=== PATIENT | female | born 1965 | race Caucasian/White ===

== ENCOUNTER 2018-12-06 22:50 | Emergency (ER) | payer OTHER, MEDICAID, SELFPAY ==
[2018-12-06 23:02] VITALS: BP 123/96; PULSE 96; RESP 20; TEMP 37; O2SAT 95; BMI 29.9
--- NOTE | 2018-12-06 23:17 | ED_ITS ---
HPI - Abdominal Pain General Chief Complaint: Abdominal Pain Stated Complaint: diarrhea and vomiting Time Seen by Provider: 12/06/18 22:55 Source: patient Mode of arrival: ambulatory Limitations: no limitations History of Present Illness HPI narrative: Patient is a 53-year-old female here for evaluation of nausea vo miting and diarrhea for the past several days. She states that the nausea and vomiting started 1st the diarrhea started after that. No blood in the stool or the vomit. No fevers. Does have generalized abdominal tenderness. No urinary symptoms. No prior abdominal surgeries. [place] told her to come to the emergency department for evaluation. States she has not vomited since then. Related Data Previous Rx's Medication Instructions Recorded amoxicillin-pot clavulanate 1 tab PO Q8HR 7 Days #21 tab 12/07/18 [Augmentin] ondansetron 4 mg PO Q6H PRN #14 tab 12/07/18 Review of Systems Constitutional Denies fever(s) and Denies headache(s) ENT Ears, Nose, Mouth, and Throat: Denies headache(s) Cardiovascular Denies chest pain and Denies dyspnea Respiratory Denies dyspnea Gastrointestinal Gastrointestinal: Reports abdominal pain, Reports diarrhea, Reports nausea and Reports vomiting Genitourinary Denies dysuria Musculoskeletal Denies myalgias and Denies arthralgias Integumentary/Breasts Denies lesions and Denies rash Neurologic Denies behavioral changes and Denies headache(s) Psychiatric Denies behavioral changes Hematologic/Lymphatic Denies easy bleeding and Denies easy bruising [facility] Surgical History No pertinent past surgical history (Acute) Social History Smoking Status: Current every day smoker Social History Smoking Status: Current every day smoker Exam Initial Vital Signs Initial Vital Signs: Vital Signs Temperature 98.6 F 12/06/18 23:02 Pulse Rate 96 H 12/06/18 23:02 Respiratory Rate 20 12/06/18 23:02 Blood Pressure 123/96 H 12/06/18 23:02 Pulse Oximetry 95 12/06/18 23:02 Const General: cooperative, well developed, well groomed and No acute distress Orientation: alert, awake and oriented x3 HENMT Head: normal to inspection and normocephalic Resp Effort & Inspection: normal respiratory effort Auscultation: clear to auscultation bilaterally Cardio Rate: regular rate Rhythm: regular rhythm Pulses: radial pulses present GI Inspection: non-distended Palpation: soft, No firm, No guarding and tender (Diffuse tenderness) Back/Spine/Pelvis Back: No CVA tenderness Skin Lesions: no lesions Rashes: no rashes Neuro General: alert, awake and oriented x3 Cognition: normal cognition Speech: speech normal Extrem General: normal to inspection and capillary refill normal Psych Appearance: grossly normal and well kempt Course Orders Ordered: ED Orders 12/06/18 23:15 Complete Blood Count AUTO DIFF Stat Comprehensive Metabolic Panel Stat Lipase Stat Partial Thromboplastin Time Stat Prothrombin Time INR Stat 12/06/18 23:23 CT abdomen pelvis w con Stat Discontinued Medications Sodium Chloride (Normal Saline 0.9%) 1,000 mls @ 1,000 mls/hr IV BOLUS ONE Stop: 12/07/18 00:22 Last Infusion: 12/07/18 01:07 Dose: 0 mls/hr Admin: 12/06/18 23:33 Dose: 1,000 mls/hr Morphine Sulfate (Morphine) 4 mg IV NOW ONE Stop: 12/06/18 23:24 Last Admin: 12/06/18 23:32 Dose: 4 mg Ondansetron HCl (Zofran Odt Prepack) 1 bottle MISC SEEINSTR ONE Stop: 12/07/18 01:03 Last Admin: 12/07/18 01:09 Dose: 1 bottle Vital Signs - 8 hr 12/06/18 23:02 12/06/18 23:59 12/07/18 01:13 Temperature 98.6 F Pulse Rate 96 H 96 H 88 Respiratory Rate 20 16 Blood Pressure 123/96 H Blood Pressure [Right Arm] 104/64 108/80 Pulse Oximetry 95 96 97 MDM - Abdominal Pain Lab Data Attestation: I reviewed the patient's lab results. Result diagrams: 12/06/18 23:15 12/06/18 23:15 Lab Results 12/06/18 12/06/18 12/06/18 Range/Units 23:15 23:15 23:15 WBC 14.0 H (4.5-11.0) X10^3/uL RBC 4.47 (4.0-5.2) X10^6/uL Hgb 13.8 (12.0-16.0) g/dL Hct 41.0 (36-46) % MCV 91.6 (80-100) fL MCH 30.9 (26-34) PG MCHC 33.8 (30-36) % RDW 13.2 (11.6-14.8) % Plt Count 353 (150-400) X10^3/uL Neut % (Auto) 63.9 (50-75) % Lymph % (Auto) 25.1 (25-40) % [place] % (Auto) 7.0 (3-14) % Eos % (Auto) 3.7 (2-4) % Baso % (Auto) 0.3 (0-2) % Neut # (Auto) 9000 H (7003-5302) /uL Lymph # (Auto) 3500 (8544-7850) /uL [place] # (Auto) 1000 H (0-900) /uL Eos # (Auto) 500 H (0-450) /uL Baso # (Auto) 0 (0-100) /uL PT 14.1 H (10.1-12.7) SECONDS INR 1.2 (0.9-1.3) APTT 36 (26.4-36.2) SECONDS Sodium 141 (137-145) mmol/L Potassium 3.5 (3.4-5.1) mmol/L Chloride 97 L (98-107) mmol/L Carbon Dioxide 32 (22-32) mmol/L BUN 12 (7-17) mg/dL Creatinine 1.10 H (0.52-1.04) mg/dL Estimated GFR 52.0 L (>60) mL/min BUN/Creatinine Ratio 10.9 (6-22) Glucose 115 H (70-100) mg/dL Calcium 8.9 (8.4-10.2) mg/dL Total Bilirubin 1.4 H (0.2-1.3) mg/dL AST 26 (14-36) IU/L ALT 18 (9-52) IU/L Alkaline Phosphatase 85 (38-126) U/L Total Protein 8.0 (6.3-8.2) g/dL Albumin 4.2 (3.5-5.0) g/dL Globulin 3.8 (1.7-4.1) g/dL Albumin/Globulin Ratio 1.1 (1.0-2.8) Lipase 49 (23-300) U/L Imaging Data CT scan - abdomen: Radiologist's impression: Findings suggesting of early/developing sigmoid diverticulitis as described. No evidence for perforation or obstruction. Enteritis as described MDM Narrative Medical decision making narrative: Nontoxic appearing. To tolerate oral intake. Does have a leukocytosis however this is not surprising given her CT scan findings. Will send home with antibiotics secondary to the early diverticulitis. Will send home with the Zofran. We discussed importance of increasing her fluid intake. We discussed return precautions and follow-up instructions. She expressed understanding and agreement with plan. Discharge Plan Departure Patient Disposition: Home Clinical Impression: Diverticulitis Abdominal pain Qualifiers: Abdominal location: generalized Qualified Code(s): R10.84 - Generalized abdominal pain Nausea and vomiting Qualifiers: Vomiting type: unspecified Vomiting Intractability: non-intractable Qualified Code(s): R11.2 - Nausea with vomiting, unspecified Diarrhea Qualifiers: Diarrhea type: unspecified type Qualified Code(s): R19.7 - Diarrhea, unspecified Discharge Date/Time: 12/07/18 01:15 Interventions: ED Discharge Assessment Last Done: 12/07/18 01:14 Instructions: Diarrhea, DI for Diverticulitis, Nausea and Vomiting-Adult Activity Restrictions/Additional Instructions: Be sure to increase your fluid intake. Take the antibiotics as directed. Eat a bland diet for the next couple days. Contact your primary provider for follow- up. Return to the emergency department for any new or worsening symptoms Prescriptions: New ondansetron 4 mg tablet,disintegrating 4 mg PO Q6H PRN (Reason: nausea and vomiting) Qty: 14 RF: 0 amoxicillin-pot clavulanate [Augmentin] 875-125 mg tablet 1 tab PO Q8HR 7 Days Qty: 21 RF: 0 Referrals: Alonzo Poe MD [Primary Care Provider] -
[2018-12-06 23:23] LABS: Add Manual Diff / Slide Review NO; Basophils Absolute Auto 0 /uL (0-100); Basophils Percent Auto 0.3 % (0-2); Eosinophils Absolute Auto 500 /uL (0-450); Eosinophils Percent Auto 3.7 % (2-4); Hemoglobin 13.8 g/dL (12.0-16.0); Lymphocytes Absolute Auto 3500 /uL (1100-4500); Lymphocytes Percent Auto 25.1 % (25-40); Mean Corpuscular HGB Conc 33.8 % (30-36); Mean Corpuscular Hemoglobin 30.9 PG (26-34); Mean Corpuscular Volume 91.6 fL (80-100); Monocytes Absolute Auto 1000 /uL (0-900); Neutrophils Absolute Auto 9000 /uL (1500-7000); Neutrophils Percent Auto 63.9 % (50-75); Platelet Count 353 X10^3/uL (150-400); Red Blood Cell Count 4.47 X10^6/uL (4.0-5.2); Red Cell Distribution Width 13.2 % (11.6-14.8)
--- NOTE | 2018-12-06 23:23 | DI.CT.S_ITS ---
PROCEDURE: CT ABDOMEN PELVIS W CON INDICATIONS: Bilateral lower abdominal pain TECHNIQUE: After the administration of intravenous contrast, 5 mm thick sections acquired from the diaphragm to the symphysis. 5 mm coronal and sagittal reformats were acquired. For radiation dose reduction, the following was used: automated exposure control, adjustment of mA and/or kV according to patient size. COMPARISON: None. FINDINGS: Image quality: Excellent. ABDOMEN: Lung bases: Lung bases are clear. Heart size is normal. Solid organs: Liver is normal in size and enhancement. Hepatic steatosis is seen. Gallbladder is within normal limits. Biliary system is non dilated. Pancreas enhances normally. Spleen is normal in size and enhancement. No adrenal nodules. Kidneys demonstrate normal size and enhancement, without hydronephrosis. Peritoneum and bowel: There is no evidence of bowel obstruction. No significant gastric wall thickening. Mild mid to distal small bowel wall thickening with mesenteric fat stranding is seen concerning for mild enteritis. Extensive sigmoid diverticulosis is seen. There is wall thickening and pericolonic fat stranding involving proximal to mid sigmoid colon concerning for acute diverticulitis. No abscess collection. Trace amount of free fluid is noted in lower pelvis. No peritoneal free air. Nodes and vessels: No retroperitoneal or mesenteric adenopathy by size criteria. Aorta and inferior vena cava are normal in size. Miscellaneous: No ventral hernias. PELVIS: Genitourinary: Bladder wall thickness is normal. Miscellaneous: No inguinal hernias or adenopathy. Bones: No suspicious bony lesions. No vertebral body compression fractures. IMPRESSION: 1. Finding is concerning for early acute diverticulitis involving proximal to mid sigmoid colon. No abscess collection. No peritoneal free air. Trace amount of free fluid in lower pelvis. 2. Mild mid to distal small bowel wall thickening and edema concerning for mild enteritis. 3. No bowel obstruction. Hepatic steatosis. No discrepancies. Dictated by: Mikhail Chandra M.D. on 12/07/2018 at 8:18 Approved by: Mikhail Chandra M.D. on 12/07/2018 at 8:21
[2018-12-06 23:30] LABS: INR 1.2 (0.9-1.3); Prothrombin Time 14.1 SECONDS (10.1-12.7)
[2018-12-06 23:32] LABS: PTT Partial Thromboplastin Tim 36 SECONDS (26.4-36.2)
[2018-12-06] MEDS: MORPHINE 4 MG/ML INJ IV (23:32)
[2018-12-06] MEDS: SODIUM CHLORIDE 0.9% 1,000 ML 1000 ML IV (23:33)
[2018-12-06 23:34] LABS: Alanine Aminotransferase 18 IU/L (9-52); Albumin 4.2 g/dL (3.5-5.0); Albumin Globulin Ratio 1.1 (1.0-2.8); Alkaline Phosphatase 85 U/L (38-126); Aspartate Aminotransferase 26 IU/L (14-36); BUN Creatinine Ratio 10.9 (6-22); Bilirubin Total 1.4 mg/dL (0.2-1.3); Blood Urea Nitrogen 12 mg/dL (7-17); Calcium 8.9 mg/dL (8.4-10.2); Carbon Dioxide 32 mmol/L (22-32); Chloride 97 mmol/L (98-107); Globulin 3.8 g/dL (1.7-4.1); Glucose 115 mg/dL (70-100); HEMOLYSIS < 15 (0-50); Lipase 49 U/L (23-300); Potassium 3.5 mmol/L (3.4-5.1); Sodium 141 mmol/L (137-145)
[2018-12-06 23:59] VITALS: BP 104/64; PULSE 96; RESP 16; O2SAT 96
--- NOTE | 2018-12-07 01:05 | PC.NURSE ---
She has uppr and lower dentures with her and a cell,a purse,landrum,and clothes and 2 rings.
[2018-12-07] MEDS: ONDANSETRON 4 MG ODT PREPACK 1 BOTTLE MISC (01:09)
[2018-12-07 01:13] VITALS: BP 108/80; PULSE 88; O2SAT 97
== END 2018-12-07 01:15 | disposition home or self-care (01) ==
PROVIDERS: Emergency Provider Emergency Medicine
DX: K57.92 Diverticulitis of intestine, part unspecified, without perforation or abscess without bleeding (principal); R10.84 Generalized abdominal pain; R11.2 Nausea with vomiting, unspecified; R19.7 Diarrhea, unspecified
CPT/HCPCS: 36591; 74177; 80053; 83690; 85025; 85610; 85730; 96361; 96374; 99283; 99284; J2270; Q9967

== ENCOUNTER 2019-01-05 19:17 | Emergency (ER) | payer OTHER, MEDICAID, SELFPAY ==
[2019-01-05 19:20] VITALS: BP 177/103; PULSE 106; RESP 20; TEMP 36.9; O2SAT 100
[2019-01-05 20:03] LABS: Add Manual Diff / Slide Review NO; Basophils Absolute Auto 100 /uL (0-100); Basophils Percent Auto 0.7 % (0-2); Eosinophils Absolute Auto 800 /uL (0-450); Eosinophils Percent Auto 10.1 % (2-4); Hematocrit 35.7 % (36-46); Hemoglobin 12.4 g/dL (12.0-16.0); Lymphocytes Absolute Auto 2600 /uL (1100-4500); Lymphocytes Percent Auto 31.5 % (25-40); Mean Corpuscular HGB Conc 34.7 % (30-36); Mean Corpuscular Volume 92.2 fL (80-100); Monocytes Absolute Auto 600 /uL (0-900); Monocytes Percent Auto 7.4 % (3-14); Neutrophils Absolute Auto 4200 /uL (1500-7000); Neutrophils Percent Auto 50.3 % (50-75); Platelet Count 295 X10^3/uL (150-400); Red Blood Cell Count 3.87 X10^6/uL (4.0-5.2); Red Cell Distribution Width 13.2 % (11.6-14.8); White Blood Cell Count 8.3 X10^3/uL (4.5-11.0)
[2019-01-05 20:19] LABS: BUN Creatinine Ratio 22.5 (6-22); Blood Urea Nitrogen 18 mg/dL (7-17); Calcium 8.9 mg/dL (8.4-10.2); Carbon Dioxide 29 mmol/L (22-32); Chloride 103 mmol/L (98-107); Estimated Glomerular Filt Rate > 60.0 mL/min (>60); Glucose 112 mg/dL (70-100); HEMOLYSIS 49 (0-50); Potassium 3.8 mmol/L (3.4-5.1); Sodium 139 mmol/L (137-145)
[2019-01-05 20:26] VITALS: BP 153/87; PULSE 91; RESP 18; O2SAT 98
[2019-01-05 20:50] LABS: Procalcitonin < 0.05 ng/mL (<0.5)
[2019-01-05 20:53] LABS: Lactate (Lactic Acid) 0.9 mmol/L (0.7-2.1)
[2019-01-05] MEDS: TRIMETH/SULFA 160/800 PREPACK 1 BOTTLE MISC (21:46)
--- NOTE | 2019-01-05 21:50 | ED.SKABFB ---
HPI - Skin/Abscess/Foreign Bdy <LUIS Ramos - Last Filed: 01/05/19 22:33> General Chief complaint: Skin/Abscess/Foreign Body Stated complaint: states she has a cyst going into blood stream Time Seen by Provider: 01/05/19 19:23 Source: patient Mode of arrival: ambulatory Limitations: no limitations History of Present Illness HPI narrative: This is a pleasant 53-year-old female, smoker, presents to ED with chief complain of right side bartholian gland abscess. She was diagnosed with this at [facility] and was referred to ED for septic workup since the provider was concerned after seeing red streak on blood vessel near by, according to the patient. She reports initial onset of symptoms started about 9 days ago. She reports mild chills, decreased appetite, not feeling well. She denies fever. She reports slightly decreasing in size of the lesion and small amount of prulent drainage especially that increases after the hot shower. She has been using hot packs or soaking as instructed for last several days. She was received 1 g of Rocephin IM injection and had completed doses of Augmentin, topical mupirocin on affected site per her primary care provider at [facility]. According to the patient's medical record, she has a pending follow-up appointment with crocodile farmer and for possible I and D next week sometime. She denies being sexually active for several years and is not concerned for STIs. Related Data Home Medications Medication Instructions Recorded Confirmed amoxicillin-pot clavulanate 1 tab PO Q12H 01/05/19 01/05/19 [Augmentin] aspirin 81 mg PO DAILY 01/05/19 01/05/19 atorvastatin 40 mg PO DAILY 01/05/19 01/05/19 carvedilol 12.5 mg PO BID 01/05/19 01/05/19 ipratropium-albuterol [Combivent 1 puff INHALATION QID 01/05/19 01/05/19 Respimat] lisinopril 10 mg PO DAILY 01/05/19 01/05/19 lorazepam 1 mg PO QID PRN 01/05/19 01/05/19 mupirocin 1 applic TOPICAL QID 01/05/19 01/05/19 potassium chloride 10 meq PO DAILY 01/05/19 01/05/19 tiotropium bromide [Spiriva with 1 cap INHALATION DAILY 01/05/19 01/05/19 HandiHaler] Previous Rx's Medication Instructions Recorded sulfamethoxazole-trimethoprim 1 tab PO BID 7 Days #14 tab 01/05/19 Allergies Allergy/AdvReac Type Severity Reaction Status Date / Time No Known Drug Allergies Allergy Verified 01/05/19 19:35 Review of Systems <LUIS Ramos - Last Filed: 01/05/19 22:33> Review of Systems General: See HPI HEENT: Denies sinus pain, ear pain, sore throat, difficulty swallowing, dizziness. Respiratory: Denies dyspnea, cough, wheezing, hemoptysis, sputum. Cardiovascular: Denies chest pain, palpitations, orthopnea, edema. Gastrointestinal: Denies nausea, vomiting, abdominal pain, diarrhea, constipation, melena. : Denies dysuria, frequency, incontinence, hematuria, urinary retention. Musculoskeletal: Denies weakness, joint pain or bony pain. Skin: See HPI Neurologic: Denies weakness, headache, numbness, change in speech, confusion, seizures, incoordination. Psychiatric: No concerning psychosocial issues. 12-point review of systems is negative except for those stated above. PFSH <LUIS Ramos - Last Filed: 01/05/19 22:33> Medical History Abscess of Bartholin's gland (Acute) Acute stress reaction (Acute) Anxiety (Acute) Asthma (Acute) CHF (congestive heart failure) (Acute) Chest pain (Acute) Chronic diastolic (congestive) heart failure (Acute) Corns and callosities (Acute) Diverticular disease of large intestine (Acute) Endometrial hyperplasia, unspecified (Acute) Headache (Acute) Pleurisy (Acute) Primary hypertension (Acute) Sciatica (Acute) Tobacco abuse (Acute) Surgical History No pertinent past surgical history (Acute) Social History Smoking Status: Current every day smoker Social History (Updated 01/05/19 @ 22:17 by LUIS Ramos) Smoking Status: Current every day smoker substance use type: marijuana Exam <LUIS Ramos - Last Filed: 01/05/19 22:33> Narrative Exam Narrative: General appearance: well developed, well nourished, in no acute distress. Head: normocephalic, atraumatic, no scalp lesions, non-tender. Eye: pupil equal, round. EOMI. Nose: nares patent. Oral: mucosa moist. Neck/Thyroid: neck supple, full range of motion, no visible masses. Skin: R external majora labia erythematous, indurated lesion with with 3 small, open lesions. No drainage noted but tender to palpate. Mild repeat much to right upper inner thigh without edema, induration, warmth. Heart: no clubbing, no cyanosis, no edema. Lungs: Breathing even and unlabored. No stridor. No accessory muscles used. Chest: normal shape and expansion. Abdomen: non-obese, non-distended. Neurologic: alert and oriented. Cognitive exam, ICU NURSE and PNS grossly intact on informal exam. Psych: good eye contact, normal affect. Initial Vital Signs Initial Vital Signs: Vital Signs Temperature 98.4 F 01/05/19 19:20 Pulse Rate 106 H 01/05/19 19:20 Respiratory Rate 20 01/05/19 19:20 Blood Pressure 177/103 H 01/05/19 19:20 Pulse Oximetry 100 01/05/19 19:20 <Alonzo Vizcarra MD - Last Filed: 01/06/19 02:13> Initial Vital Signs Initial Vital Signs: Vital Signs Temperature 98.4 F 01/05/19 19:20 Pulse Rate 106 H 01/05/19 19:20 Respiratory Rate 20 01/05/19 19:20 Blood Pressure 177/103 H 01/05/19 19:20 Pulse Oximetry 100 01/05/19 19:20 Course <LUIS Ramos - Last Filed: 01/05/19 22:33> Orders Ordered: ED Orders 01/05/19 19:54 Basic Metabolic Panel Stat Complete Blood Count AUTO DIFF Stat Procalcitonin Stat 01/05/19 20:05 Lactate (Lactic Acid) Stat 01/05/19 20:25 Blood Culture Stat 01/05/19 20:28 Wound Culture and Gram Stain Stat Discontinued Medications Trimethoprim/Sulfamethoxazole (Bactrim Ds Prepack) 1 bottle MISC SEEINSTR ONE Stop: 01/05/19 21:36 Last Admin: 01/05/19 21:46 Dose: 1 bottle Vital Signs - 8 hr 01/05/19 19:20 01/05/19 20:26 01/05/19 21:53 Temperature 98.4 F Pulse Rate 106 H 91 H 91 H Respiratory Rate 20 18 20 Blood Pressure 177/103 H 172/98 H Blood Pressure [Right Arm] 153/87 H Pulse Oximetry 100 98 98 <Alonzo Vizcarra MD - Last Filed: 01/06/19 02:13> Orders Ordered: ED Orders 01/05/19 19:54 Basic Metabolic Panel Stat Complete Blood Count AUTO DIFF Stat Procalcitonin Stat 01/05/19 20:05 Lactate (Lactic Acid) Stat 01/05/19 20:25 Blood Culture Stat 01/05/19 20:28 Wound Culture and Gram Stain Stat Discontinued Medications Trimethoprim/Sulfamethoxazole (Bactrim Ds Prepack) 1 bottle MISC SEEINSTR ONE Stop: 01/05/19 21:36 Last Admin: 01/05/19 21:46 Dose: 1 bottle Vital Signs - 8 hr 01/05/19 19:20 01/05/19 20:26 01/05/19 21:53 Temperature 98.4 F Pulse Rate 106 H 91 H 91 H Respiratory Rate 20 18 20 Blood Pressure 177/103 H 172/98 H Blood Pressure [Right Arm] 153/87 H Pulse Oximetry 100 98 98 MDM - Skin/Abscess/Foreign Bdy <LUIS Ramos - Last Filed: 01/05/19 22:33> Differential Diagnosis Likely abscess of skin or subcutaneous tissue, cellulitis and other (STIs, sepsis) Medical Records Attestation: I reviewed the patient's medical records. Lab Data Attestation: I reviewed the patient's lab results. Result diagrams: 01/05/19 19:54 01/05/19 19:54 Lab Results 01/05/19 01/05/19 01/05/19 Range/Units 19:54 19:54 19:54 WBC 8.3 (4.5-11.0) X10^3/uL RBC 3.87 L (4.0-5.2) X10^6/uL Hgb 12.4 (12.0-16.0) g/dL Hct 35.7 L (36-46) % MCV 92.2 (80-100) fL MCH 32.0 (26-34) PG MCHC 34.7 (30-36) % RDW 13.2 (11.6-14.8) % Plt Count 295 (150-400) X10^3/uL Neut % (Auto) 50.3 (50-75) % Lymph % (Auto) 31.5 (25-40) % Dickenson % (Auto) 7.4 (3-14) % Eos % (Auto) 10.1 H (2-4) % Baso % (Auto) 0.7 (0-2) % Neut # (Auto) 4200 (1849-2251) /uL Lymph # (Auto) 2600 (0141-6502) /uL Dickenson # (Auto) 600 (0-900) /uL Eos # (Auto) 800 H (0-450) /uL Baso # (Auto) 100 (0-100) /uL Sodium 139 (137-145) mmol/L Potassium 3.8 (3.4-5.1) mmol/L Chloride 103 (98-107) mmol/L Carbon Dioxide 29 (22-32) mmol/L BUN 18 H (7-17) mg/dL Creatinine 0.80 (0.52-1.04) mg/dL Estimated GFR > 60.0 (>60) mL/min BUN/Creatinine Ratio 22.5 H (6-22) Glucose 112 H (70-100) mg/dL Lactate (0.7-2.1) mmol/L Calcium 8.9 (8.4-10.2) mg/dL Procalcitonin < 0.05 (<0.5) ng/mL 01/05/19 Range/Units 20:05 WBC (4.5-11.0) X10^3/uL RBC (4.0-5.2) X10^6/uL Hgb (12.0-16.0) g/dL Hct (36-46) % MCV (80-100) fL MCH (26-34) PG MCHC (30-36) % RDW (11.6-14.8) % Plt Count (150-400) X10^3/uL Neut % (Auto) (50-75) % Lymph % (Auto) (25-40) % Dickenson % (Auto) (3-14) % Eos % (Auto) (2-4) % Baso % (Auto) (0-2) % Neut # (Auto) (6084-3676) /uL Lymph # (Auto) (5268-9599) /uL Dickenson # (Auto) (0-900) /uL Eos # (Auto) (0-450) /uL Baso # (Auto) (0-100) /uL Sodium (137-145) mmol/L Potassium (3.4-5.1) mmol/L Chloride (98-107) mmol/L Carbon Dioxide (22-32) mmol/L BUN (7-17) mg/dL Creatinine (0.52-1.04) mg/dL Estimated GFR (>60) mL/min BUN/Creatinine Ratio (6-22) Glucose (70-100) mg/dL Lactate 0.9 (0.7-2.1) mmol/L Calcium (8.4-10.2) mg/dL Procalcitonin (<0.5) ng/mL MDM Narrative Medical decision making narrative: This is a pleasant 53 year, from [facility], who is referred by her primary care provider for an evaluation in the ED for sepsis. The skin lesion on the right labia majora with erythema and induration which appears to be not near the Bartholin gland as her primary care provider described and appears to be cellulitis. The patient reports had an IM injection of Rocephin, has completed so far a doses of Augmentin. She does not appears to be toxic. She is afebrile. The lab test was not consistent with a sepsis within normal white count without shift to left, lactate, procalcitonin. Wound culture, 2 sets of blood cultures are in pending. Patient reports actually that lesion is decreasing in size. She states site has been draining after a hot shower, or warm pack. The patient was instructed to stop taking Augmentin at this time. She was medicated with prepack Bactrim DS 1st dose in ED and prescribed with b.i.d. dose of 7 day course to home. The patient was instructed to follow up closely with her primary care physician next week and return precautions were discussed with the patient. The patient agrees with the plan of care, no further questions were expressed at this time. Her case was discussed with Dr. Vizcarra who is attending ED physician. He kindly evaluated the patient with me at the bedside. The patient exhibited elevated blood pressure without symptoms while in ED. She reports has been always having elevated blood pressure and she was advised to follow with primary care physician on this. <Alonzo Vizcarra MD - Last Filed: 01/06/19 02:13> Lab Data Lab Results 01/05/19 01/05/19 01/05/19 Range/Units 19:54 19:54 19:54 WBC 8.3 (4.5-11.0) X10^3/uL RBC 3.87 L (4.0-5.2) X10^6/uL Hgb 12.4 (12.0-16.0) g/dL Hct 35.7 L (36-46) % MCV 92.2 (80-100) fL MCH 32.0 (26-34) PG MCHC 34.7 (30-36) % RDW 13.2 (11.6-14.8) % Plt Count 295 (150-400) X10^3/uL Neut % (Auto) 50.3 (50-75) % Lymph % (Auto) 31.5 (25-40) % Dickenson % (Auto) 7.4 (3-14) % Eos % (Auto) 10.1 H (2-4) % Baso % (Auto) 0.7 (0-2) % Neut # (Auto) 4200 (5819-1752) /uL Lymph # (Auto) 2600 (5983-8124) /uL Dickenson # (Auto) 600 (0-900) /uL Eos # (Auto) 800 H (0-450) /uL Baso # (Auto) 100 (0-100) /uL Sodium 139 (137-145) mmol/L Potassium 3.8 (3.4-5.1) mmol/L Chloride 103 (98-107) mmol/L Carbon Dioxide 29 (22-32) mmol/L BUN 18 H (7-17) mg/dL Creatinine 0.80 (0.52-1.04) mg/dL Estimated GFR > 60.0 (>60) mL/min BUN/Creatinine Ratio 22.5 H (6-22) Glucose 112 H (70-100) mg/dL Lactate (0.7-2.1) mmol/L Calcium 8.9 (8.4-10.2) mg/dL Procalcitonin < 0.05 (<0.5) ng/mL 01/05/19 Range/Units 20:05 WBC (4.5-11.0) X10^3/uL RBC (4.0-5.2) X10^6/uL Hgb (12.0-16.0) g/dL Hct (36-46) % MCV (80-100) fL MCH (26-34) PG MCHC (30-36) % RDW (11.6-14.8) % Plt Count (150-400) X10^3/uL Neut % (Auto) (50-75) % Lymph % (Auto) (25-40) % Dickenson % (Auto) (3-14) % Eos % (Auto) (2-4) % Baso % (Auto) (0-2) % Neut # (Auto) (7899-5078) /uL Lymph # (Auto) (0671-1128) /uL Dickenson # (Auto) (0-900) /uL Eos # (Auto) (0-450) /uL Baso # (Auto) (0-100) /uL Sodium (137-145) mmol/L Potassium (3.4-5.1) mmol/L Chloride (98-107) mmol/L Carbon Dioxide (22-32) mmol/L BUN (7-17) mg/dL Creatinine (0.52-1.04) mg/dL Estimated GFR (>60) mL/min BUN/Creatinine Ratio (6-22) Glucose (70-100) mg/dL Lactate 0.9 (0.7-2.1) mmol/L Calcium (8.4-10.2) mg/dL Procalcitonin (<0.5) ng/mL Discharge Plan Departure Patient Disposition: Home Clinical Impression: Cellulitis Qualifiers: Site of cellulitis: other site Qualified Code(s): L03.818 - Cellulitis of other sites Abscess of skin or subcutaneous tissue Qualifiers: Site of cutaneous abscess: unspecified site Qualified Code(s): L02.91 - Cutaneous abscess, unspecified Discharge Date/Time: 01/05/19 21:53 Interventions: ED Discharge Assessment Last Done: 01/05/19 21:53 Instructions: DI for Cellulitis -- Adult Activity Restrictions/Additional Instructions: You have been diagnosed with [cellulitis on right labia majora. Today's blood tests today for infection indicators and sepsis are all unremarkable. You are treated with Bactrim DS while here in the ED. Please stop taking Augmentin and change you're antibiotic medication to Bactrim DS for next 7 days. Continue with warm pack since this will help with drainage and healing]. What to do: *Take your medications as directed. Please complete a course of antibiotic medication unless this gives you allergy reaction. *Follow up with your primary care provider in 2-3 days, call for an appointment. Let them know you were seen in the ED and that we asked you to be seen in follow up. *Return to ED if you have any new, worsening, or concerning symptoms, such as [increasing pain, redness, warmth, fever/chills, chest pain, breathing difficulty, unable to tolerate fluids, any acute concerns]. Prescriptions: New sulfamethoxazole-trimethoprim 800-160 mg tablet 1 tab PO BID 7 Days Qty: 14 RF: 0 No Action atorvastatin 40 mg tablet 40 mg PO DAILY RF: 0 carvedilol 12.5 mg Tablet 12.5 mg PO BID RF: 0 lisinopril 10 mg tablet 10 mg PO DAILY RF: 0 aspirin 81 mg Tablet,Chewable 81 mg PO DAILY RF: 0 mupirocin 2 % ointment 1 applic topical QID RF: 0 lorazepam 1 mg Tablet 1 mg PO QID PRN (Reason: Anxiety) RF: 0 amoxicillin-pot clavulanate [Augmentin] 875-125 mg Tablet 1 tab PO Q12H RF: 0 potassium chloride 10 mEq Tablet,Er Particles/Crystals 10 meq PO DAILY RF: 0 Spiriva with HandiHaler 18 mcg Capsule, W/Inhalation Device 1 cap INHALATION DAILY RF: 0 Combivent Respimat 20-100 mcg/actuation Mist 1 puff INHALATION QID RF: 0 Referrals: Nica Blevins PA-C [Non-Staff] - <Alonzo Vizcarra MD - Last Filed: 01/06/19 02:13> Cosign ED Attending Berylature Attestation: I very this patient in conjunction with LUIS Vincent. I agree with the assessment and treatment plan.
--- NOTE | 2019-01-05 21:52 | PC.NURSE ---
pt c/o vaginal pain/swelling r/t cyst, denies fever/chills/nausea/vomiting, further assmt deferred to TAO Vincent
[2019-01-05 21:53] VITALS: BP 172/98; PULSE 91; RESP 20; O2SAT 98
--- NOTE | 2019-01-05 22:02 | ED_ITS ---
HPI - Skin/Abscess/Foreign Bdy <LUIS Ramos - Last Filed: 01/05/19 22:33> General Chief complaint: Skin/Abscess/Foreign Body Stated complaint: states she has a cyst going into blood stream Time Seen by Provider: 01/05/19 19:23 Source: patient Mode of arrival: ambulatory Limitations: no limitations History of Present Illness HPI narrative: This is a pleasant 53-year-old female, smoker, presents to ED with chief complain of right side bartholian gland abscess. She was diagnosed with this at [facility] and was referred to ED for septic workup since the provider was concerned after seeing red streak on blood vessel near by, according to the patient. She reports initial onset of symptoms started about 9 days ago. She reports mild chills, decreased appetite, not feeling well. She denies fever. She reports slightly decreasing in size of the lesion and small amount of prulent drainage especially that increases after the hot shower. She has been using hot packs or soaking as instructed for last several days. She was received 1 g of Rocephin IM injection and had completed doses of Augmentin, topical mupirocin on affected site per her primary care provider at [facility]. 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 She denies being sexually active for several years and is not concerned for STIs. Related Data Home Medications Medication Instructions Recorded Confirmed amoxicillin-pot clavulanate 1 tab PO Q12H 01/05/19 01/05/19 [Augmentin] aspirin 81 mg PO DAILY 01/05/19 01/05/19 atorvastatin 40 mg PO DAILY 01/05/19 01/05/19 carvedilol 12.5 mg PO BID 01/05/19 01/05/19 ipratropium-albuterol [Combivent 1 puff INHALATION QID 01/05/19 01/05/19 Respimat] lisinopril 10 mg PO DAILY 01/05/19 01/05/19 lorazepam 1 mg PO QID PRN 01/05/19 01/05/19 mupirocin 1 applic TOPICAL QID 01/05/19 01/05/19 potassium chloride 10 meq PO DAILY 01/05/19 01/05/19 tiotropium bromide [Spiriva with 1 cap INHALATION DAILY 01/05/19 01/05/19 HandiHaler] Previous Rx's Medication Instructions Recorded sulfamethoxazole-trimethoprim 1 tab PO BID 7 Days #14 tab 01/05/19 Allergies Allergy/AdvReac Type Severity Reaction Status Date / Time No Known Drug Allergies Allergy Verified 01/05/19 19:35 Review of Systems <LUIS Ramos - Last Filed: 01/05/19 22:33> Review of Systems General: See HPI HEENT: Denies sinus pain, ear pain, sore throat, difficulty swallowing, dizziness. Respiratory: Denies dyspnea, cough, wheezing, hemoptysis, sputum. Cardiovascular: Denies chest pain, palpitations, orthopnea, edema. Gastrointestinal: Denies nausea, vomiting, abdominal pain, diarrhea, constipation, melena. : Denies dysuria, frequency, incontinence, hematuria, urinary retention. Musculoskeletal: Denies weakness, joint pain or bony pain. Skin: See HPI Neurologic: Denies weakness, headache, numbness, change in speech, confusion, seizures, incoordination. Psychiatric: No concerning psychosocial issues. 12-point review of systems is negative except for those stated above. PFSH <LUIS Ramos - Last Filed: 01/05/19 22:33> Medical History Abscess of Bartholin's gland (Acute) Acute stress reaction (Acute) Anxiety (Acute) Asthma (Acute) CHF (congestive heart failure) (Acute) Chest pain (Acute) Chronic diastolic (congestive) heart failure (Acute) Corns and callosities (Acute) Diverticular disease of large intestine (Acute) Endometrial hyperplasia, unspecified (Acute) Headache (Acute) Pleurisy (Acute) Primary hypertension (Acute) Sciatica (Acute) Tobacco abuse (Acute) Surgical History No pertinent past surgical history (Acute) Social History Smoking Status: Current every day smoker Social History (Updated 01/05/19 @ 22:17 by LUIS Ramos) Smoking Status: Current every day smoker substance use type: marijuana Exam <LUIS Ramos - Last Filed: 01/05/19 22:33> Narrative Exam Narrative: General appearance: well developed, well nourished, in no acute distress. Head: normocephalic, atraumatic, no scalp lesions, non-tender. Eye: pupil equal, round. EOMI. Nose: nares patent. Oral: mucosa moist. Neck/Thyroid: neck supple, full range of motion, no visible masses. Skin: R external majora labia erythematous, indurated lesion with with 3 small, open lesions. No drainage noted but tender to palpate. Mild repeat much to right upper inner thigh without edema, induration, warmth. Heart: no clubbing, no cyanosis, no edema. Lungs: Breathing even and unlabored. No stridor. No accessory muscles used. Chest: normal shape and expansion. Abdomen: non-obese, non-distended. Neurologic: alert and oriented. 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 Psych: good eye contact, normal affect. Initial Vital Signs Initial Vital Signs: Vital Signs Temperature 98.4 F 01/05/19 19:20 Pulse Rate 106 H 01/05/19 19:20 Respiratory Rate 20 01/05/19 19:20 Blood Pressure 177/103 H 01/05/19 19:20 Pulse Oximetry 100 01/05/19 19:20 <Alonzo Vizcarra MD - Last Filed: 01/06/19 02:13> Initial Vital Signs Initial Vital Signs: Vital Signs Temperature 98.4 F 01/05/19 19:20 Pulse Rate 106 H 01/05/19 19:20 Respiratory Rate 20 01/05/19 19:20 Blood Pressure 177/103 H 01/05/19 19:20 Pulse Oximetry 100 01/05/19 19:20 Course <LUIS Ramos - Last Filed: 01/05/19 22:33> Orders Ordered: ED Orders 01/05/19 19:54 Basic Metabolic Panel Stat Complete Blood Count AUTO DIFF Stat Procalcitonin Stat 01/05/19 20:05 Lactate (Lactic Acid) Stat 01/05/19 20:25 Blood Culture Stat 01/05/19 20:28 Wound Culture and Gram Stain Stat Discontinued Medications Trimethoprim/Sulfamethoxazole (Bactrim Ds Prepack) 1 bottle MISC SEEINSTR ONE Stop: 01/05/19 21:36 Last Admin: 01/05/19 21:46 Dose: 1 bottle Vital Signs - 8 hr 01/05/19 19:20 01/05/19 20:26 01/05/19 21:53 Temperature 98.4 F Pulse Rate 106 H 91 H 91 H Respiratory Rate 20 18 20 Blood Pressure 177/103 H 172/98 H Blood Pressure [Right Arm] 153/87 H Pulse Oximetry 100 98 98 <Alonzo Vizcarra MD - Last Filed: 01/06/19 02:13> Orders Ordered: ED Orders 01/05/19 19:54 Basic Metabolic Panel Stat Complete Blood Count AUTO DIFF Stat Procalcitonin Stat 01/05/19 20:05 Lactate (Lactic Acid) Stat 01/05/19 20:25 Blood Culture Stat 01/05/19 20:28 Wound Culture and Gram Stain Stat Discontinued Medications Trimethoprim/Sulfamethoxazole (Bactrim Ds Prepack) 1 bottle MISC SEEINSTR ONE Stop: 01/05/19 21:36 Last Admin: 01/05/19 21:46 Dose: 1 bottle Vital Signs - 8 hr 01/05/19 19:20 01/05/19 20:26 01/05/19 21:53 Temperature 98.4 F Pulse Rate 106 H 91 H 91 H Respiratory Rate 20 18 20 Blood Pressure 177/103 H 172/98 H Blood Pressure [Right Arm] 153/87 H Pulse Oximetry 100 98 98 MDM - Skin/Abscess/Foreign Bdy <LUIS Ramos - Last Filed: 01/05/19 22:33> Differential Diagnosis Likely abscess of skin or subcutaneous tissue, cellulitis and other (STIs, sepsis) Medical Records Attestation: I reviewed the patient's medical records. Lab Data Attestation: I reviewed the patient's lab results. Result diagrams: 01/05/19 19:54 01/05/19 19:54 Lab Results 01/05/19 01/05/19 01/05/19 Range/Units 19:54 19:54 19:54 WBC 8.3 (4.5-11.0) X10^3/uL RBC 3.87 L (4.0-5.2) X10^6/uL Hgb 12.4 (12.0-16.0) g/dL Hct 35.7 L (36-46) % MCV 92.2 (80-100) fL MCH 32.0 (26-34) PG MCHC 34.7 (30-36) % RDW 13.2 (11.6-14.8) % Plt Count 295 (150-400) X10^3/uL Neut % (Auto) 50.3 (50-75) % Lymph % (Auto) 31.5 (25-40) % Bryan % (Auto) 7.4 (3-14) % Eos % (Auto) 10.1 H (2-4) % Baso % (Auto) 0.7 (0-2) % Neut # (Auto) 4200 (1141-0773) /uL Lymph # (Auto) 2600 (1723-4717) /uL Bryan # (Auto) 600 (0-900) /uL Eos # (Auto) 800 H (0-450) /uL Baso # (Auto) 100 (0-100) /uL Sodium 139 (137-145) mmol/L Potassium 3.8 (3.4-5.1) mmol/L Chloride 103 (98-107) mmol/L Carbon Dioxide 29 (22-32) mmol/L BUN 18 H (7-17) mg/dL Creatinine 0.80 (0.52-1.04) mg/dL Estimated GFR > 60.0 (>60) mL/min BUN/Creatinine Ratio 22.5 H (6-22) Glucose 112 H (70-100) mg/dL Lactate (0.7-2.1) mmol/L Calcium 8.9 (8.4-10.2) mg/dL Procalcitonin < 0.05 (<0.5) ng/mL 01/05/19 Range/Units 20:05 WBC (4.5-11.0) X10^3/uL RBC (4.0-5.2) X10^6/uL Hgb (12.0-16.0) g/dL Hct (36-46) % MCV (80-100) fL MCH (26-34) PG MCHC (30-36) % RDW (11.6-14.8) % Plt Count (150-400) X10^3/uL Neut % (Auto) (50-75) % Lymph % (Auto) (25-40) % Bryan % (Auto) (3-14) % Eos % (Auto) (2-4) % Baso % (Auto) (0-2) % Neut # (Auto) (0144-0423) /uL Lymph # (Auto) (4164-3660) /uL Bryan # (Auto) (0-900) /uL Eos # (Auto) (0-450) /uL Baso # (Auto) (0-100) /uL Sodium (137-145) mmol/L Potassium (3.4-5.1) mmol/L Chloride (98-107) mmol/L Carbon Dioxide (22-32) mmol/L BUN (7-17) mg/dL Creatinine (0.52-1.04) mg/dL Estimated GFR (>60) mL/min BUN/Creatinine Ratio (6-22) Glucose (70-100) mg/dL Lactate 0.9 (0.7-2.1) mmol/L Calcium (8.4-10.2) mg/dL Procalcitonin (<0.5) ng/mL MDM Narrative Medical decision making narrative: This is a pleasant 53 year, from [place], who is referred by her primary care provider for an evaluation in the ED for sepsis. The skin lesion on the right labia majora with erythema and induration which appears to be not near the Bartholin gland as her primary care provider described and appears to be cellulitis. The patient reports had an IM injection of Rocephin, has completed so far a doses of Augmentin. She does not appears to be toxic. She is afebrile. The lab test was not consistent with a sepsis within normal white count without shift to left, lactate, procalcitonin. Wound culture, 2 sets of blood cultures are in pending. Patient reports actually that lesion is decreasing in size. She states site has been draining after a hot shower, or warm pack. The patient was instructed to stop taking Augmentin at this time. She was medicated with prepack Bactrim DS 1st dose in ED and prescribed with b.i.d. dose of 7 day course to home. The patient was instructed to follow up closely with her primary care physician next week and return precautions were discussed with the patient. The patient agrees with the plan of care, no further questions were expressed at this time. Her case was discussed with Dr. Vizcarra who is attending ED physician. He kindly evaluated the patient with me at the bedside. The patient exhibited elevated blood pressure without symptoms while in ED. She reports has been always having elevated blood pressure and she was advised to follow with primary care physician on this. <Alonzo Vizcarra MD - Last Filed: 01/06/19 02:13> Lab Data Lab Results 01/05/19 01/05/19 01/05/19 Range/Units 19:54 19:54 19:54 WBC 8.3 (4.5-11.0) X10^3/uL RBC 3.87 L (4.0-5.2) X10^6/uL Hgb 12.4 (12.0-16.0) g/dL Hct 35.7 L (36-46) % MCV 92.2 (80-100) fL MCH 32.0 (26-34) PG MCHC 34.7 (30-36) % RDW 13.2 (11.6-14.8) % Plt Count 295 (150-400) X10^3/uL Neut % (Auto) 50.3 (50-75) % Lymph % (Auto) 31.5 (25-40) % Bryan % (Auto) 7.4 (3-14) % Eos % (Auto) 10.1 H (2-4) % Baso % (Auto) 0.7 (0-2) % Neut # (Auto) 4200 (9274-4122) /uL Lymph # (Auto) 2600 (3959-1241) /uL Bryan # (Auto) 600 (0-900) /uL Eos # (Auto) 800 H (0-450) /uL Baso # (Auto) 100 (0-100) /uL Sodium 139 (137-145) mmol/L Potassium 3.8 (3.4-5.1) mmol/L Chloride 103 (98-107) mmol/L Carbon Dioxide 29 (22-32) mmol/L BUN 18 H (7-17) mg/dL Creatinine 0.80 (0.52-1.04) mg/dL Estimated GFR > 60.0 (>60) mL/min BUN/Creatinine Ratio 22.5 H (6-22) Glucose 112 H (70-100) mg/dL Lactate (0.7-2.1) mmol/L Calcium 8.9 (8.4-10.2) mg/dL Procalcitonin < 0.05 (<0.5) ng/mL 01/05/19 Range/Units 20:05 WBC (4.5-11.0) X10^3/uL RBC (4.0-5.2) X10^6/uL Hgb (12.0-16.0) g/dL Hct (36-46) % MCV (80-100) fL MCH (26-34) PG MCHC (30-36) % RDW (11.6-14.8) % Plt Count (150-400) X10^3/uL Neut % (Auto) (50-75) % Lymph % (Auto) (25-40) % Bryan % (Auto) (3-14) % Eos % (Auto) (2-4) % Baso % (Auto) (0-2) % Neut # (Auto) (4085-4827) /uL Lymph # (Auto) (0101-8255) /uL Bryan # (Auto) (0-900) /uL Eos # (Auto) (0-450) /uL Baso # (Auto) (0-100) /uL Sodium (137-145) mmol/L Potassium (3.4-5.1) mmol/L Chloride (98-107) mmol/L Carbon Dioxide (22-32) mmol/L BUN (7-17) mg/dL Creatinine (0.52-1.04) mg/dL Estimated GFR (>60) mL/min BUN/Creatinine Ratio (6-22) Glucose (70-100) mg/dL Lactate 0.9 (0.7-2.1) mmol/L Calcium (8.4-10.2) mg/dL Procalcitonin (<0.5) ng/mL Discharge Plan Departure Patient Disposition: Home Clinical Impression: Cellulitis Qualifiers: Site of cellulitis: other site Qualified Code(s): L03.818 - Cellulitis of other sites Abscess of skin or subcutaneous tissue Qualifiers: Site of cutaneous abscess: unspecified site Qualified Code(s): L02.91 - Cutaneous abscess, unspecified Discharge Date/Time: 01/05/19 21:53 Interventions: ED Discharge Assessment Last Done: 01/05/19 21:53 Instructions: DI for Cellulitis -- Adult Activity Restrictions/Additional Instructions: You have been diagnosed with [cellulitis on right labia majora. Today's blood tests today for infection indicators and sepsis are all unremarkable. You are treated with Bactrim DS while here in the ED. Please stop taking Augmentin and change you're antibiotic medication to Bactrim DS for next 7 days. Continue with warm pack since this will help with drainage and healing]. What to do: *Take your medications as directed. Please complete a course of antibiotic medication unless this gives you allergy reaction. *Follow up with your primary care provider in 2-3 days, call for an appointment. Let them know you were seen in the ED and that we asked you to be seen in follow up. *Return to ED if you have any new, worsening, or concerning symptoms, such as [increasing pain, redness, warmth, fever/chills, chest pain, breathing difficulty, unable to tolerate fluids, any acute concerns]. Prescriptions: New sulfamethoxazole-trimethoprim 800-160 mg tablet 1 tab PO BID 7 Days Qty: 14 RF: 0 No Action atorvastatin 40 mg tablet 40 mg PO DAILY RF: 0 carvedilol 12.5 mg Tablet 12.5 mg PO BID RF: 0 lisinopril 10 mg tablet 10 mg PO DAILY RF: 0 aspirin 81 mg Tablet,Chewable 81 mg PO DAILY RF: 0 mupirocin 2 % ointment 1 applic topical QID RF: 0 lorazepam 1 mg Tablet 1 mg PO QID PRN (Reason: Anxiety) RF: 0 amoxicillin-pot clavulanate [Augmentin] 875-125 mg Tablet 1 tab PO Q12H RF: 0 potassium chloride 10 mEq Tablet,Er Particles/Crystals 10 meq PO DAILY RF: 0 Spiriva with HandiHaler 18 mcg Capsule, W/Inhalation Device 1 cap INHALATION DAILY RF: 0 Combivent Respimat 20-100 mcg/actuation Mist 1 puff INHALATION QID RF: 0 Referrals: Nica Blevins PA-C [Non-Staff] - <Alonzo Vizcarra MD - Last Filed: 01/06/19 02:13> Cosign ED Attending Berylature Attestation: I very this patient in conjunction with LUIS Vincent. I agree with the assessment and treatment plan.
== END 2019-01-05 21:53 | disposition home or self-care (01) ==
PROVIDERS: Emergency Provider Nurse Practitioner Family
DX: L02.91 Cutaneous abscess, unspecified (principal)
CPT/HCPCS: 36415; 36591; 80048; 83605; 84145; 85025; 87040; 87070; 87075; 87077; 87147; 87186; 87205; 99282; 99283

== ENCOUNTER 2019-07-01 12:51 | Emergency (ER) | payer OTHER, MEDICAID, SELFPAY ==
[2019-07-01 13:00] VITALS: BP 173/103; PULSE 94; RESP 20; O2SAT 98
--- NOTE | 2019-07-01 13:45 | ED_ITS ---
HPI - Abdominal Pain General Chief Complaint: Abdominal Pain Stated Complaint: Stuff Coming Out Bowels Time Seen by Provider: 07/01/19 12:53 Source: patient Mode of arrival: Ambulatory Limitations: no limitations History of Present Illness HPI narrative: 53-year-old female daily smoker presents with friend in the chief complaint of generalized abdominal pain, worsening with abdominal swelling over the past few days. She denies any significant provocation or palliation nor any radiation. She has not had any history of the same. She has been passing gas and had a bowel movement this morning. She does admit to some blood tinged stool but denies any black and tarry stool. She denies any change in medicati ons or diet. MD complaint: abdominal pain Onset (ago): day(s) Pain Consistency: constant Location: diffuse Severity: moderate Quality: cramping and aching Radiation: none Relieving factors: nothing Exacerbating factors: nothing Associated symptoms: other Related Data Home Medications Medication Instructions Recorded Confirmed amoxicillin-pot clavulanate 1 tab PO Q12H 01/05/19 01/05/19 [Augmentin] aspirin 81 mg PO DAILY 01/05/19 01/05/19 atorvastatin 40 mg PO DAILY 01/05/19 01/05/19 carvedilol 12.5 mg PO BID 01/05/19 01/05/19 ipratropium-albuterol [Combivent 1 puff INHALATION QID 01/05/19 01/05/19 Respimat] lisinopril 10 mg PO DAILY 01/05/19 01/05/19 lorazepam 1 mg PO QID PRN 01/05/19 01/05/19 mupirocin 1 applic TOPICAL QID 01/05/19 01/05/19 potassium chloride 10 meq PO DAILY 01/05/19 01/05/19 tiotropium bromide [Spiriva with 1 cap INHALATION DAILY 01/05/19 01/05/19 HandiHaler] lisinopril 10 mg PO 07/01/19 Allergies Allergy/AdvReac Type Severity Reaction Status Date / Time No Known Drug Allergies Allergy Verified 01/05/19 19:35 Review of Systems Constitutional Constitutional: Denies chills, Denies fatigue, Denies fever(s), Denies frequent falls, Denies lethargy and Denies weakness Eyes Eyes: Denies change in vision, Denies eye discharge, Denies irritation and Denies loss of vision ENT Ears, Nose, Mouth, and Throat: Denies change in voice, Denies dizziness, Denies neck pain, Denies sore throat and Denies throat swelling Cardiovascular Cardiovascular: Denies chest pain, Denies irregular heart rhythm, Denies lightheadedness, Denies palpitations, Denies dyspnea, Denies dyspnea on exertion and Denies orthopnea Respiratory Respiratory: Denies cough, Denies dyspnea, Denies dyspnea on exertion and Denies wheezing Gastrointestinal Gastrointestinal: Reports abdominal pain, Denies change in bowel habits, Denies diarrhea, Denies nausea and Denies vomiting Genitourinary Genitourinary: Denies hematuria, Denies flank pain, Denies urinary incontinence and Denies urinary urgency Musculoskeletal Musculoskeletal: Denies back pain, Denies muscle weakness, Denies neck pain, Denies numbness and Denies tingling Integumentary/Breasts Skin/Breast: Denies pruritus, Denies erythema, Denies rash and Denies wounds Neurologic Neurologic: Denies behavioral changes, Denies confusion, Denies dizziness, Denies frequent falls, Denies loss of vision, Denies numbness, Denies tingling and Denies weakness Psychiatric Psychiatric: Denies anxiety, Denies behavioral changes, Denies confusion, Denies depression, Denies homicidal ideation and Denies suicidal ideation Endocrine Endocrine: Denies fatigue, Denies flushing and Denies palpitations Hematologic/Lymphatic Hematologic/Lymphatic: Denies easy bruising Allergic/Immunologic Allergic/Immunologic: Denies urticaria, Denies throat swelling and Denies wheezing Patient History Medical History Abscess of Bartholin's gland (Acute) Acute stress reaction (Acute) Anxiety (Acute) Asthma (Acute) Chest pain (Acute) CHF (congestive heart failure) (Acute) Chronic diastolic (congestive) heart failure (Acute) Corns and callosities (Acute) Diverticular disease of large intestine (Acute) Endometrial hyperplasia, unspecified (Acute) Headache (Acute) Pleurisy (Acute) Primary hypertension (Acute) Sciatica (Acute) Tobacco abuse (Acute) Surgical History No pertinent past surgical history (Acute) Social History (Reviewed 07/01/19 @ 15:23 by JEANETH Clements Smoking Status: Current every day smoker substance use type: marijuana Smoking Status: Current every day smoker Substance Use Type: marijuana Exam Narrative Exam Narrative: GENERAL: [53] year old patient appears stated age. Well- nourished, well-developed patient, in mild distress. HEAD: Atraumatic. Normocephalic. EYES: Pupils equal round and reactive. Extraocular motions intact. No scleral icterus. No injection or drainage. ENT: Nose without bleeding, purulent drainage. Throat without erythema, tonsillar hypertrophy or exudate. Airway patent. NECK: Trachea midline. Non tender CARDIOVASCULAR: Regular rate and rhythm without murmurs, gallops, or rubs. RESPIRATORY: Clear to auscultation. Breath sounds equal bilaterally. No wheezes, rales, or rhonchi. GASTROINTESTINAL: Abdomen soft, mild generalized tenderness, nondistended. EXTREMITIES: No edema or joint tenderness. BACK: Nontender without deformity or crepitance. No flank tenderness. NEURO: AOx3. SKIN: No rash or erythema of visible areas Initial Vital Signs Initial Vital Signs: Vital Signs Pulse Rate 94 H 07/01/19 13:00 Respiratory Rate 20 07/01/19 13:00 Blood Pressure 173/103 H 07/01/19 13:00 Pulse Oximetry 98 07/01/19 13:00 Course Orders Ordered: ED Orders 07/01/19 13:20 EKG-12 Lead Routine 07/01/19 13:56 Complete Blood Count AUTO DIFF Stat Comprehensive Metabolic Panel Stat Lipase Stat 07/01/19 14:06 XR acute abdomen series Stat 07/01/19 14:44 CT abdomen pelvis w con Stat Discontinued Medications Sodium Chloride (Normal Saline 0.9%) 1,000 mls @ 150 mls/hr IV CONT AAYUSH Last Admin: 07/01/19 14:35 Dose: 150 mls/hr Documented by: KDWIGHT Vital Signs Vital signs: Vital Signs - 8 hr 07/01/19 13:00 07/01/19 15:40 07/01/19 16:30 Pulse Rate 94 H 82 80 Respiratory Rate 20 20 Blood Pressure 173/103 H Blood Pressure [Right Arm] 183/91 H 175/95 H Pulse Oximetry 98 97 99 MDM - Abdominal Pain Lab Data Result diagrams: 07/01/19 13:56 07/01/19 13:56 Labs: Lab Results 07/01/19 07/01/19 Range/Units 13:56 13:56 WBC 9.1 (4.5-11.0) X10^3/uL RBC 4.35 (4.0-5.2) X10^6/uL Hgb 13.8 (12.0-16.0) g/dL Hct 39.7 (36-46) % MCV 91.3 (80-100) fL MCH 31.6 (26-34) PG MCHC 34.6 (30-36) % RDW 13.1 (11.6-14.8) % Plt Count 332 (150-400) X10^3/uL Neut % (Auto) 61.3 (50-75) % Lymph % (Auto) 29.0 (25-40) % Smyth % (Auto) 5.4 (3-14) % Eos % (Auto) 3.6 (2-4) % Baso % (Auto) 0.7 (0-2) % Neut # (Auto) 5600 (0407-3460) /uL Lymph # (Auto) 2600 (6811-6429) /uL Smyth # (Auto) 500 (0-900) /uL Eos # (Auto) 300 (0-450) /uL Baso # (Auto) 100 (0-100) /uL Sodium 140 (137-145) mmol/L Potassium 3.7 (3.4-5.1) mmol/L Chloride 103 (98-107) mmol/L Carbon Dioxide 30 (22-32) mmol/L BUN 16 (7-17) mg/dL Creatinine 0.80 (0.52-1.04) mg/dL Estimated GFR > 60.0 (>60) mL/min BUN/Creatinine Ratio 20.0 (6-22) Glucose 113 H (70-100) mg/dL Calcium 9.4 (8.4-10.2) mg/dL Total Bilirubin 0.6 (0.2-1.3) mg/dL AST 47 H (14-36) IU/L ALT 33 (<35) IU/L Alkaline Phosphatase 67 (38-126) U/L Total Protein 7.6 (6.3-8.2) g/dL Albumin 4.3 (3.5-5.0) g/dL Globulin 3.3 (1.7-4.1) g/dL Albumin/Globulin Ratio 1.3 (1.0-2.8) Lipase 132 (23-300) U/L Point of care testing: Urine Dip Bedside Urine Glucose Negative Bedside Urine Bilirubin - Negative Bedside Urine Ketone - Negative Urine Specific [place] 1.010 Bedside Urine Occult Blood - Negative Bedside Urine pH 6.5 Bedside Urine Protein - Negative Bedside Urine Urobilinogen - Negative Bedside Urine Nitrite - Negative Bedside Urine Leukocytes - Negative Esterase Imaging Data Abdominal x-ray: Radiologist's Impression: Alisha Blakely 53 F [address] [address] XRay Report Signed Patient: Alisha Blakely LMR#: [id number] : 1965Acct:[id number] Age/Sex: 53 / FDate of Service: 07/01/19 Loc: ED Accession Number: [id number] Procedure: XR acute abdomen series Ordering Provider: Ziggy Sam D.O. PROCEDURE: XR ACUTE ABDOMEN SERIES INDICATIONS: Abdominal pain TECHNIQUE: One view chest and two views of the abdomen were acquired. COMPARISON: [facility], CT, CT ABDOMEN PELVIS W CON, 12/06/2018, 23:25. FINDINGS: Surgical changes and devices: None. Chest: Lungs are clear. Heart size is normal. No pleural effusions. No pneumoperitoneum. Abdomen: No air-filled distended small bowel loops are identified demonstrating air-fluid levels. Air and stool are seen throughout the colon. No suspicious calcifications. Visualized solid organ contours appear normal. Bones: No suspicious bony lesions. Age-appropriate degenerative changes of the spine and pelvic joints are noted. IMPRESSION: 1. No bowel obstruction. 2. No acute cardiopulmonary process. Dictated by: Robbie Li M.D. on 07/01/2019 at 13:47 CT scan - abdomen/pelvis: Radiologist's Impression: [address] [address] [address] Scan Report Signed Patient: Alisha Blakely LMR#: [id number] : 1965Acct:[id number] Age/Sex: 53 / FDate of Service: 07/01/19 Loc: ED Accession Number: [id number] Procedure: CT abdomen pelvis w con Ordering Provider: Minerva,Ziggy D.O. PROCEDURE: CT ABDOMEN PELVIS W CON INDICATIONS: severe pain TECHNIQUE: After the administration of oral and intravenous contrast, 5 mm thick sections acquired from the diaphragms to the symphysis. 5 mm thick coronal and sagittal reformats were performed. For radiation dose reduction, the following was used: automated exp osure control, adjustment of mA and/or kV according to patient size. COMPARISON: [facility], CT, CT ABDOMEN PELVIS W CON, 12/06/2018, 23:25. FINDINGS: Image quality: Diagnostic. ABDOMEN: Lung bases: Lung bases are clear. Heart size is normal. Solid organs: Liver is normal in size and enhancement. Punctate foci of low attenuation are seen within the right hepatic lobe that are too small to adequately characterize and may represent hamartomas versus small cysts. Gallbladder is not enlarged or inflamed. Biliary system is non-dilated. Pancreas enhances normally. Spleen is normal in size and enhancement. No adrenal nodules. Kidneys are normal in size and enhancement, without hydronephrosis. 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 Peritoneum and bowel: The stomach is unremarkable. The small bowel loops are nondilated. The appendix is well-visualized and normal. Moderate amount of residual stool seen within the colon. Extensive distal colonic diverticulosis is identified without stranding or inflammation to suggest diverticulitis. There is no free fluid, loculated fluid collection or free air. Nodes and vessels: No retroperitoneal or mesenteric adenopathy. Aorta and inferior vena cava are normal in caliber. Bones: No acute fracture or dislocation is identified. Moderate degenerative changes of the spine are noted. PELVIS: Genitourinary: Bladder wall thickness is normal. An arcuate type uterus appears to be present. The ovaries are not enlarged or well evaluated. Miscellaneous: No inguinal hernias or adenopathy. No free fluid or loculated fluid collection is evident. Bones: No suspicious bony lesions. No acute pelvic fractures are present. IMPRESSION: 1. No bowel obstruction. There may be mild constipation. 2. Distal colonic diverticulosis without diverticulitis. 3. Normal appendix. Dictated by: Robbie Li M.D. on 07/01/2019 at 14:28 Approved by: Robbie Li M.D. on 07/01/2019 at 14:57 Discharge Plan Departure Patient Disposition: Home Clinical Impression: Abdominal pain Qualifiers: Abdominal location: generalized Qualified Code(s): R10.84 - Generalized abdominal pain Constipation Qualifiers: Constipation type: unspecified constipation type Qualified Code(s): K59.00 - Constipation, unspecified Discharge Date/Time: 07/01/19 16:41 Instructions: DI for Abdominal Pain-Adult, DI for Constipation Activity Restrictions/Additional Instructions: *You have been diagnosed with [ abdominal pain due to constipation ] *What to do: *Take over the counter medications as directed: 1. Metamucil - is a bulk forming laxative and adds fiber 2. Colace - softens your stool 3. Dulcolax suppository - stimulates your bowels *Follow up with your primary care provider in 2-3 days, call for appointment *Return to ER if you should have any new, worsening or concerning symptoms *Drink plenty of water and eat foods high in fiber *Stay as active as you can as this helps move your bowels as well Prescriptions: No Action atorvastatin 40 mg tablet 40 mg PO DAILY RF: 0 carvedilol 12.5 mg Tablet 12.5 mg PO BID RF: 0 lisinopril 10 mg tablet 10 mg PO DAILY RF: 0 aspirin 81 mg Tablet,Chewable 81 mg PO DAILY RF: 0 mupirocin 2 % ointment 1 applic topical QID RF: 0 lorazepam 1 mg Tablet 1 mg PO QID PRN (Reason: Anxiety) RF: 0 amoxicillin-pot clavulanate [Augmentin] 875-125 mg Tablet 1 tab PO Q12H RF: 0 potassium chloride 10 mEq Tablet,Er Particles/Crystals 10 meq PO DAILY RF: 0 Spiriva with HandiHaler 18 mcg Capsule, W/Inhalation Device 1 cap INHALATION DAILY RF: 0 Combivent Respimat 20-100 mcg/actuation Mist 1 puff INHALATION QID RF: 0 lisinopril 10 mg tablet 10 mg PO RF: 0 Referrals: [facility] [Outside] Alonzo Poe MD [Primary Care Provider] - Stand Alone Forms: Work Release Note
--- NOTE | 2019-07-01 14:06 | DI.RAD.S_ITS ---
PROCEDURE: XR ACUTE ABDOMEN SERIES INDICATIONS: Abdominal pain TECHNIQUE: One view chest and two views of the abdomen were acquired. COMPARISON: [facility], CT, CT ABDOMEN PELVIS W CON, 12/06/2018, 23:25. FINDINGS: Surgical changes and devices: None. Chest: Lungs are clear. Heart size is normal. No pleural effusions. No pneumoperitoneum. Abdomen: No air-filled distended small bowel loops are identified demonstrating air-fluid levels. Air and stool are seen throughout the colon. No suspicious calcifications. Visualized solid organ contours appear normal. Bones: No suspicious bony lesions. Age-appropriate degenerative changes of the spine and pelvic joints are noted. IMPRESSION: 1. No bowel obstruction. 2. No acute cardiopulmonary process. Dictated by: Robbie Li M.D. on 07/01/2019 at 13:47 Approved by: Robbie Li M.D. on 07/01/2019 at 13:48
[2019-07-01 14:16] LABS: Add Manual Diff / Slide Review NO; Basophils Absolute Auto 100 /uL (0-100); Basophils Percent Auto 0.7 % (0-2); Eosinophils Absolute Auto 300 /uL (0-450); Eosinophils Percent Auto 3.6 % (2-4); Hematocrit 39.7 % (36-46); Hemoglobin 13.8 g/dL (12.0-16.0); Lymphocytes Absolute Auto 2600 /uL (1100-4500); Mean Corpuscular HGB Conc 34.6 % (30-36); Mean Corpuscular Hemoglobin 31.6 PG (26-34); Mean Corpuscular Volume 91.3 fL (80-100); Monocytes Absolute Auto 500 /uL (0-900); Monocytes Percent Auto 5.4 % (3-14); Neutrophils Absolute Auto 5600 /uL (1500-7000); Neutrophils Percent Auto 61.3 % (50-75); Platelet Count 332 X10^3/uL (150-400); Red Blood Cell Count 4.35 X10^6/uL (4.0-5.2); Red Cell Distribution Width 13.1 % (11.6-14.8); White Blood Cell Count 9.1 X10^3/uL (4.5-11.0)
[2019-07-01 14:24] LABS: Alanine Aminotransferase 33 IU/L (<35); Albumin 4.3 g/dL (3.5-5.0); Albumin Globulin Ratio 1.3 (1.0-2.8); Alkaline Phosphatase 67 U/L (38-126); Aspartate Aminotransferase 47 IU/L (14-36); Bilirubin Total 0.6 mg/dL (0.2-1.3); Blood Urea Nitrogen 16 mg/dL (7-17); Calcium 9.4 mg/dL (8.4-10.2); Carbon Dioxide 30 mmol/L (22-32); Chloride 103 mmol/L (98-107); Estimated Glomerular Filt Rate > 60.0 mL/min (>60); Globulin 3.3 g/dL (1.7-4.1); Glucose 113 mg/dL (70-100); HEMOLYSIS < 15 (0-50); Lipase 132 U/L (23-300); Potassium 3.7 mmol/L (3.4-5.1); Sodium 140 mmol/L (137-145); Total Protein 7.6 g/dL (6.3-8.2)
[2019-07-01] MEDS: SODIUM CHLORIDE 0.9% 1,000 ML 150 ML IV (14:35)
--- NOTE | 2019-07-01 14:44 | DI.CT.S_ITS ---
PROCEDURE: CT ABDOMEN PELVIS W CON INDICATIONS: severe pain TECHNIQUE: After the administration of oral and intravenous contrast, 5 mm thick sections acquired from the diaphragms to the symphysis. 5 mm thick coronal and sagittal reformats were performed. For radiation dose reduction, the following was used: automated exposure control, adjustment of mA and/or kV according to patient size. COMPARISON: [facility], CT, CT ABDOMEN PELVIS W CON, 12/06/2018, 23:25. FINDINGS: Image quality: Diagnostic. ABDOMEN: Lung bases: Lung bases are clear. Heart size is normal. Solid organs: Liver is normal in size and enhancement. Punctate foci of low attenuation are seen within the right hepatic lobe that are too small to adequately characterize and may represent hamartomas versus small cysts. Gallbladder is not enlarged or inflamed. Biliary system is non-dilated. Pancreas enhances normally. Spleen is normal in size and enhancement. No adrenal nodules. Kidneys are normal in size and enhancement, without hydronephrosis. 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 Peritoneum and bowel: The stomach is unremarkable. The small bowel loops are nondilated. The appendix is well-visualized and normal. Moderate amount of residual stool seen within the colon. Extensive distal colonic diverticulosis is identified without stranding or inflammation to suggest diverticulitis. There is no free fluid, loculated fluid collection or free air. Nodes and vessels: No retroperitoneal or mesenteric adenopathy. Aorta and inferior vena cava are normal in caliber. Bones: No acute fracture or dislocation is identified. Moderate degenerative changes of the spine are noted. PELVIS: Genitourinary: Bladder wall thickness is normal. An arcuate type uterus appears to be present. The ovaries are not enlarged or well evaluated. Miscellaneous: No inguinal hernias or adenopathy. No free fluid or loculated fluid collection is evident. Bones: No suspicious bony lesions. No acute pelvic fractures are present. IMPRESSION: 1. No bowel obstruction. There may be mild constipation. 2. Distal colonic diverticulosis without diverticulitis. 3. Normal appendix. Dictated by: Robbie Li M.D. on 07/01/2019 at 14:28 Approved by: Robbie Li M.D. on 07/01/2019 at 14:57
[2019-07-01 15:40] VITALS: BP 183/91; PULSE 82; RESP 20; O2SAT 97
[2019-07-01 16:30] VITALS: BP 175/95; PULSE 80; O2SAT 99
--- NOTE | 2019-07-10 14:24 | PC.NURSE ---
LATE ENTRY: patient had NS started at 07/01/19 1435 at 150ml/hour, completed at 07/01/19 at 1641 of 300ml NS infused.
== END 2019-07-01 16:41 | disposition home or self-care (01) ==
PROVIDERS: Emergency Provider Emergency Medicine
DX: K59.00 Constipation, unspecified (principal); R10.84 Generalized abdominal pain; K62.5 Hemorrhage of anus and rectum
CPT/HCPCS: 36415; 74022; 74177; 80053; 81003; 83690; 85025; 93005; 96360; 96361; 99284; 99285

== ENCOUNTER → 2020-01-10 13:26 | Outpatient (CLI) | payer OTHER, MEDICAID, SELFPAY ==
[2020-01-14 21:16] LABS: COVID19 Sendout Not Detected (Not Detect)
== END ==
PROVIDERS: Visit Provider Physician Assistant
DX: Z11.59 Encounter for screening for other viral diseases (principal)
CPT/HCPCS: 87635

== ENCOUNTER → 2020-02-06 13:23 | Outpatient (CLI) | payer OTHER, MEDICAID, SELFPAY ==
[2020-02-07 15:45] LABS: COVID19 Sendout Not Detected (Not Detect)
== END ==
PROVIDERS: PCP Family Medicine; Visit Provider Physician Assistant
DX: Z11.59 Encounter for screening for other viral diseases (principal)
CPT/HCPCS: 87635